=== PATIENT | male | born 1955 | race Caucasian/White ===

== ENCOUNTER 2018-09-25 08:49 | Day surgery (SDC) | payer OTHER ==
[~2018-09-25 08:49] MED LIST: CLONAZEPAM1 MG; COREG CR80 MG; COZAAR50 MG; LEXAPRO5 MG; LIPIODOL10 ML; SPIRIVA RESPIMAT4 G1
== END 2018-09-25 14:15 | disposition home or self-care (01) ==
LOC: AMB-ENDOS 08:49
DX: R19.4 Change in bowel habit (principal); K64.2 Third degree hemorrhoids

== ENCOUNTER → 2020-02-14 | Outpatient (CLI) | payer OTHER | END | disposition home or self-care (01) | LOC: ASH CLINIC 07:31 | PROVIDERS: ATTEND Internal Medicine | DX: Z23 Encounter for immunization (principal); U07.1 COVID-19 ==

== ENCOUNTER 2022-06-06 09:20 | Outpatient (CLI) | payer OTHER | END 2022-06-06 09:21 | disposition home or self-care (01) | LOC: NUCLEAR 09:20 | PROVIDERS: ATTEND Internal Medicine Cardiovascular Disease | DX: I25.10 Atherosclerotic heart disease of native coronary artery without angina pectoris (principal) | CPT/HCPCS: 78472; A9560 ==